=== PATIENT | female | born 1990 | race Caucasian/White ===

== ENCOUNTER 2018-05-20 20:31 | Inpatient (IN) ==
[2018-05-20] MEDS ORDERED: Ibuprofen 400 MG TABLET PO PRN (20:55)
[2018-05-20] MEDS ORDERED: *HR* LORazepam 2 MG/ML VIAL IM PRN (21:01)
[2018-05-20] MEDS ORDERED: *HR* LORazepam 1 MG TABLET PO PRN (21:01)
[2018-05-20] MEDS ORDERED: MOM Conc 10 ML UD.LIQ PO PRN (21:01)
[2018-05-20] MEDS ORDERED: Mag Hydrox/Al Hydrox/Simeth 30 ML UDC PO PRN (21:01)
[2018-05-20] MEDS: hydrOXYzine pamoate 25 MG CAPSULE PO PRN (21:43)
[2018-05-20] MEDS: traZODone 50 MG TABLET PO PRN (21:43)
[2018-05-20] MEDS: Topiramate 100 MG TABLET PO SCH (21:43)
[2018-05-20] MEDS: (Atomoxetine Hcl [Strattera] 60 MG) PO SCH (21:46)
[2018-05-21] MEDS: Nicotine 21 MG PATCH.TD24 TD SCH (10:14)
[2018-05-21] MEDS: Topiramate 100 MG TABLET PO SCH ×2 (10:14→21:30)
[2018-05-21] MEDS: (Atomoxetine Hcl [Strattera] 60 MG) PO SCH (10:16)
[2018-05-21] MEDS: (Brexpiprazole [Rexulti] 4 MG) PO SCH (10:16)
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
[2018-05-21] MEDS: hydrOXYzine pamoate 25 MG CAPSULE PO PRN ×2 (15:47→21:30)
[2018-05-21] MEDS: Perphenazine 2 MG TABLET PO SCH (21:29)
[2018-05-21] MEDS: traZODone 50 MG TABLET PO PRN (21:30)
[2018-05-22] MEDS ORDERED: Levothyroxine 25 MCG TABLET PO SCH (06:30)
[2018-05-22] MEDS: Topiramate 100 MG TABLET PO SCH (09:53)
[2018-05-22] MEDS: Perphenazine 2 MG TABLET PO SCH (09:53)
[2018-05-22] MEDS: Nicotine 21 MG PATCH.TD24 TD SCH (09:54)
[2018-05-22] MEDS: (Brexpiprazole [Rexulti] 4 MG) PO SCH (09:55)
[2018-05-22] MEDS: (Atomoxetine Hcl [Strattera] 60 MG) PO SCH (09:55)
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
[2018-05-22 10:06] VITALS: BP 120/90
== END 2018-05-22 11:35 | disposition home or self-care (01) | DRG 751 ==
LOC: 1ANU 20:31
PROVIDERS: ADMIT Psychiatry & Neurology Psychiatry; ATTEND Psychiatry & Neurology Psychiatry

== ENCOUNTER 2018-09-13 19:54 | Inpatient (IN) ==
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
[2018-09-13 21:24] LABS: Acetaminophen < 10 mcg/mL (10-20); BUN/Creatinine Ratio 17 (6-26); Blood Urea Nitrogen 13 mg/dL (6-20); Calcium 9.2 mg/dL (8.6-10.3); Carbon Dioxide 18 mEq/L (23-29); Chloride 108 mEq/L (98-107); Ethanol < 10 mg/dL (Less than 10); Glucose 88 mg/dL (70-105); Osmolality,Calculated 282 (280-300); Salicylate < 2.5 mg/dL (15.0-30.0); Sodium 136 mEq/L (136-145); eGFR For African Americans > 60 (> 60); eGFR For Non-African Americans > 60 (> 60)
[2018-09-13 21:26] LABS: Bilirubin,Urine Negative (Negative); Blood,Urine Negative (Negative); Clarity,Urine Cloudy (Clear); Color,Urine Yellow (Yellow); Glucose,Urine (UA) Normal (Normal); Ketones,Urine Trace mg/dL (Negative); Leukocyte Esterase,Urine Negative (Negative); Nitrite,Urine Negative (Negative); Protein,Urine Negative (Neg-Trace); Specific Gravity,Urine 1.006 (1.010-1.025); Urobilinogen,Urine Normal (Normal)
[2018-09-13 21:29] LABS: Bacteria,Urine None Seen per hpf (None-Few); Hyaline Casts,Urine None Seen per lpf (None-Few); Squamous Epithelial Cell,Urine Many per lpf (None-Few)
[2018-09-13 22:08] LABS: Basophils # 0.1 K/mcL (0.0-0.2); Basophils % 0.7 %; Eosinophils # 0.1 K/mcL (0.0-0.6); Eosinophils % 0.6 %; Hematocrit 38.4 % (35.3-44.9); Hemoglobin 12.6 g/dL (11.5-15.4); Immature Granulocytes % 0.2 % (0-4); Lymphocytes # 2.6 K/mcL (0.6-4.6); Lymphocytes % 30.4 %; Mean Corpuscular HGB Conc 32.8 g/dL (31.6-35.5); Mean Corpuscular Hemoglobin 30.1 pg (28.0-33.3); Mean Corpuscular Volume 91.6 fL (83.0-100.0); Mean Platelet Volume 11.5 fL (9.4-12.4); Monocytes # 0.8 K/mcL (0.0-1.3); Monocytes % 8.9 %; Neutrophils # 5.1 K/mcL (1.6-8.9); Platelet Count 236 K/mcL (140-400); Red Blood Count 4.19 M/mcL (3.82-4.97); Red Cell Distribution Width 13.9 % (11.5-14.5); Segmented Neutrophils % 59.2 %; White Blood Count 8.5 K/mcL (4.3-11.1)
[2018-09-13 22:08] LABS: Amphetamine Screen,Urine Positive ng/mL (Cutoff=1000); Barbiturate Screen,Urine Negative ng/mL (Cutoff=200); Benzodiazepines Screen,Urine Negative ng/mL (Cutoff=200); Cannabinoid Screen,Urine Negative ng/mL (Cutoff = 50); Cocaine Screen,Urine Negative ng/mL (Cutoff= 300); Opiate Screen,Urine Negative ng/mL (Cutoff=300); Phencyclidine Screen,Urine Negative ng/mL (Cutoff=25)
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
[2018-09-14] MEDS ORDERED: MOM Conc 10 ML UD.LIQ PO PRN (02:12)
[2018-09-14] MEDS ORDERED: Ibuprofen 400 MG TABLET PO PRN (02:12)
[2018-09-14] MEDS ORDERED: Mag Hydrox/Al Hydrox/Simeth 30 ML UDC PO PRN (02:12)
[2018-09-14] MEDS: Levothyroxine 25 MCG TABLET PO SCH (06:22)
[2018-09-14] MEDS: Nicotine 2 MG GUM BC PRN ×2 (06:23→15:01)
[2018-09-14] MEDS: Perphenazine 2 MG TABLET PO SCH ×2 (08:58→20:40)
[2018-09-14] MEDS: Topiramate 100 MG TABLET PO SCH ×2 (08:58→20:40)
[2018-09-14] MEDS: hydrOXYzine pamoate 25 MG CAPSULE PO SCH ×4 (08:58→20:41)
[2018-09-14] MEDS: (Atomoxetine Hcl [Strattera] 60 MG) PO SCH (09:04)
[2018-09-14] MEDS: (Brexpiprazole [Rexulti] 4 MG) PO SCH (09:04)
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
[2018-09-14] MEDS ORDERED: cloNIDine HCl 0.1 MG TABLET PO PRN (09:16)
[2018-09-14] MEDS ORDERED: Ondansetron ODT 4 MG TAB.RAPDIS SL PRN (09:22)
[2018-09-14] MEDS: *HR* LORazepam 2 MG/ML VIAL IM PRN (20:17)
[2018-09-14] MEDS: WATER FOR INJ IM PRN (20:21)
[2018-09-14] MEDS: ZIPRASIDONE IM PRN (20:21)
[2018-09-15] MEDS: Levothyroxine 25 MCG TABLET PO SCH ×2 (06:36→08:24)
[2018-09-15] MEDS: hydrOXYzine pamoate 25 MG CAPSULE PO SCH ×4 (08:23→21:07)
[2018-09-15] MEDS: Topiramate 100 MG TABLET PO SCH ×2 (08:23→21:07)
[2018-09-15] MEDS: Perphenazine 2 MG TABLET PO SCH ×2 (08:24→21:06)
[2018-09-15] MEDS: (Atomoxetine Hcl [Strattera] 60 MG) PO SCH (08:26)
[2018-09-15] MEDS: (Brexpiprazole [Rexulti] 4 MG) PO SCH (08:26)
--- NOTE | 2018-09-15 10:31 | Psychiatry Progress Note ---
Date of Encounter: 09/15/18 Time of Encounter: 10:26 Subjective Interval history: Looks better today. Became very agitated last night. Wanted out to use. Picked up a chair and swung it. Ended up receiving emergency IM medications. Also took scheduled meds and she is starting to clear up now. Much more cooperative. Still asking to leave but able to tolerate discussion on what needs to change when she leaves and what services need set up. States she will consider Vivatrol. Has been buying Suboxone off the street since being kicked out of the clinic. Needs more time off opiates before she can tolerate a Vivatrol shot but if she can find a way to stay clean this is definitely somet ender to consider. Mixing Suboxone and Meth. Aware AH are worsened by Meth use. 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 Meds seem to be helping. Likely needs a couple of days but definitely looking better. Review of Systems Constitutional: Denies: fever, chills, weakness, weight change Eyes: Denies: eye pain, vision change Ears, Nose, Throat: Denies: ear pain, throat pain, dental pain, hearing loss, congestion Cardiovascular: Denies: chest pain, palpitations, dyspnea on exertion Respiratory: Denies: cough, dyspnea, wheezes Gastrointestinal: Denies: abdominal pain, nausea, vomiting, diarrhea, constipation Musculoskeletal: Denies: joint swelling, joint pain Neurological: Denies: headache, weakness, numbness, memory loss Results - Vital Signs Vital Signs: Temp Pulse Resp BP Pulse Ox 98.2 F 69 18 105/73 99 09/15/18 09:00 09/15/18 09:00 09/15/18 09:00 09/15/18 09:00 09/15/18 09:00 Assessment and Plan (1) Substance-induced psychotic disorder Current visit: Yes Status: Acute Plan: Continue hospitalization, Close observation, Suicide Precautions per unit protocol, Encourage participation in unit milieu, Group Therapy, Monitor sleep, Monitor appetite Risks, benefits, side effects, alternatives discussed w/pt: Yes Patient agreeable to treatment: Yes (2) Major depression Current visit: Yes Status: Acute Risks, benefits, side effects, alternatives discussed w/pt: Yes Patient agreeable to treatment: Yes Qualifiers: Major depression recurrence: recurrent Active/Remission status: currently active Major depression episode severity: moderate Qualified Code(s): F33.1 - Major depressive disorder, recurrent, moderate Consult Discharge Plan - Plan Psychiatry Exam - Constitutional Vitals: Temp Pulse Resp BP Pulse Ox 98.2 F 69 18 105/73 99 09/15/18 09:00 09/15/18 09:00 09/15/18 09:00 09/15/18 09:00 09/15/18 09:00 General appearance: obese - Musculoskeletal Gait: normal Station: relaxed Strength & Tone: normal for patient - Psychiatric Patient Orientation: Yes Person, Yes Time, Yes Place Level of alertness: Alert Behavior: calm, cooperative Psychomotor activity: Normal Eye Contact: Maintains Eye Contact Mood Description: Irritable Affect description: congruent with mood Speech Volume: Normal Speech pattern: normal rate, normal rhythm, normal tone, fluent, spontaneous Language & Vocabulary: consistent with education Thought Process: [place] Thought Content: No Suicidal ideation, No Homicidal ideation, No Overt delusions Perceptual Disturbances: Yes Auditory hallucinations Attention Span Ability: Capable of Focused Attention Memory Description: Immediate Intact, Recent Impaired, Remote Intact Patient Reliability: Questionable Historian Fund of knowledge: Yes abstraction ability Intelligence Estimate: Average Judgment: Poor Insight: Minimal
[2018-09-15] MEDS: Nicotine 14 MG PATCH.TD24 TD SCH (11:54)
[2018-09-15] MEDS: Ziprasidone 20 MG CAPSULE PO PRN (13:37)
[2018-09-15] MEDS: traZODone 50 MG TABLET PO PRN (21:07)
[2018-09-15] MEDS: *HR* LORazepam 2 MG/ML VIAL IM PRN (22:23)
[2018-09-15] MEDS: WATER FOR INJ IM PRN (22:23)
[2018-09-15] MEDS: ZIPRASIDONE IM PRN (22:23)
[2018-09-16] MEDS: Levothyroxine 25 MCG TABLET PO SCH (06:23)
[2018-09-16] MEDS: Nicotine 14 MG PATCH.TD24 TD SCH (07:45)
[2018-09-16] MEDS: *HR* LORazepam 1 MG TABLET PO PRN ×2 (07:46→23:06)
[2018-09-16] MEDS: Topiramate 100 MG TABLET PO SCH ×2 (07:46→20:20)
[2018-09-16] MEDS: Perphenazine 2 MG TABLET PO SCH ×2 (07:46→20:19)
[2018-09-16] MEDS: Ziprasidone 20 MG CAPSULE PO PRN (07:47)
[2018-09-16] MEDS: hydrOXYzine pamoate 25 MG CAPSULE PO SCH ×4 (07:47→20:20)
[2018-09-16] MEDS: (Brexpiprazole [Rexulti] 4 MG) PO SCH (09:18)
[2018-09-16] MEDS: (Atomoxetine Hcl [Strattera] 60 MG) PO SCH (09:18)
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
[2018-09-16] MEDS: *HR* LORazepam 2 MG/ML VIAL IM PRN (12:37)
[2018-09-16] MEDS: ZIPRASIDONE IM PRN (12:38)
[2018-09-16] MEDS: WATER FOR INJ IM PRN (12:38)
[2018-09-16] MEDS: traZODone 50 MG TABLET PO PRN (20:20)
[2018-09-17] MEDS: traZODone 50 MG TABLET PO PRN (01:25)
[2018-09-17] MEDS: Levothyroxine 25 MCG TABLET PO SCH (06:38)
[2018-09-17] MEDS: Perphenazine 2 MG TABLET PO SCH (09:06)
[2018-09-17] MEDS: Topiramate 100 MG TABLET PO SCH (09:07)
[2018-09-17] MEDS: hydrOXYzine pamoate 25 MG CAPSULE PO SCH (09:07)
[2018-09-17] MEDS: Nicotine 14 MG PATCH.TD24 TD SCH (09:08)
[2018-09-17] MEDS: (Brexpiprazole [Rexulti] 4 MG) PO SCH (09:10)
[2018-09-17] MEDS: (Atomoxetine Hcl [Strattera] 60 MG) PO SCH (09:10)
[2018-09-17 09:23] VITALS: BP 106/71
--- NOTE | 2018-09-17 11:17 | Discharge Summary ---
Date of Encounter: 09/17/18 Time of Encounter: 10:00 Diagnosis - Discharge Diagnosis (1) Substance-induced psychotic disorder Status: Acute Medications - Discharge Medications Prescriptions: Buspirone HCl [Buspar] 7.5 mg PO TID #45 tablet hydrOXYzine pamoate [HydrOXYzine Pamoate] 50 mg PO QID #45 capsule Propranolol [Inderal] 20 mg PO BID #30 tablet Brexpiprazole [Rexulti] 4 mg PO DAILY #15 tablet Atomoxetine HCl [Strattera] 60 mg PO DAILY #15 capsule Levothyroxine [Synthroid] 25 mcg PO DAILY@0630 #30 tablet Topiramate [Topamax] 100 mg PO BID #30 tablet traZODone [TraZODone] 50 mg PO HS PRN #15 tablet PRN Reason: Insomnia Perphenazine [Trilafon] 4 mg PO BID #30 tablet Atomoxetine HCl [Strattera] 60 mg PO DAILY #15 capsule 09/17/18 [Rx] Brexpiprazole [Rexulti] 4 mg PO DAILY #15 tablet 09/17/18 [Rx] Buspirone HCl [Buspar] 7.5 mg PO TID #45 tablet 09/17/18 [Rx] Levothyroxine [Synthroid] 25 mcg PO DAILY@0630 #30 tablet 09/17/18 [Rx] Perphenazine [Trilafon] 4 mg PO BID #30 tablet 09/17/18 [Rx] Propranolol [Inderal] 20 mg PO BID #30 tablet 09/17/18 [Rx] Topiramate [Topamax] 100 mg PO BID #30 tablet 09/17/18 [Rx] hydrOXYzine pamoate [HydrOXYzine Pamoate] 50 mg PO QID #45 capsule 09/17/18 [Rx] traZODone [TraZODone] 50 mg PO HS PRN #15 tablet 09/17/18 [Rx] Allergy/AdvReac Type Severity Reaction Status Date / Time haloperidol [From Haldol] Allergy Hives Verified 09/13/18 20:35 lamotrigine [From Lamictal] Allergy Hives Verified 09/13/18 20:35 Results Procedures and tests throughout hospitalization: Completed Lab Orders Category Date Time Status Acetaminophen Stat Lab 09/13/18 20:45 Completed Basic Metabolic Panel Stat Lab 09/13/18 20:45 Completed Complete Blood Count [HEME] Stat Lab 09/13/18 21:34 Completed Ethanol Stat Lab 09/13/18 20:45 Completed Test Result, Urine [URIN] Stat Lab 09/13/18 21:06 Completed Salicylate Stat Lab 09/13/18 20:45 Completed Urinalysis Reflex Cult & Micro [URIN] Stat Lab 09/13/18 21:06 Completed Urine tox screen [Drug Screen, Urine] [UCHEM] Stat Lab 09/13/18 21:06 Com pleted Lab Results 09/13/18 09/13/18 09/13/18 Range/Units 20:45 21:06 21:06 WBC (4.3-11.1) K/mcL RBC (3.82-4.97) M/mcL Hgb (11.5-15.4) g/dL Hct (35.3-44.9) % MCV (83.0-100.0) fL MCH (28.0-33.3) pg MCHC (31.6-35.5) g/dL RDW (11.5-14.5) % Plt Count (140-400) K/mcL MPV (9.4-12.4) fL Immature Gran % (0-4) % Seg Neutrophils % % Lymphocytes % % Monocytes % % Eosinophils % % Basophils % % Neutrophils # (1.6-8.9) K/mcL Lymphocytes # (0.6-4.6) K/mcL Monocytes # (0.0-1.3) K/mcL Eosinophils # (0.0-0.6) K/mcL Basophils # (0.0-0.2) K/mcL Sodium 136 (136-145) mEq/L Potassium 4.0 (3.5-5.1) mEq/L Chloride 108 H (98-107) mEq/L Carbon Dioxide 18 L (23-29) mEq/L BUN 13 (6-20) mg/dL Creatinine 0.78 (0.60-1.20) mg/dL Est GFR ( Amer) > 60 (> 60) Est GFR (Non-Af Amer) > 60 (> 60) BUN/Creatinine Ratio 17 (6-26) Glucose 88 (70-105) mg/dL Calculated Osmolality 282 (280-300) Calcium 9.2 (8.6-10.3) mg/dL Urine Color Yellow (Yellow) Urine Clarity Cloudy A (Clear) Urine pH 6.0 (5.0-8.0) pH Units Ur Specific [place] 1.006 L (1.010-1.025) Urine Protein Negative (Neg-Trace) mg/dL Urine Glucose (UA) Normal (Normal) mg/dL Urine Ketones Trace H (Negative) mg/dL Urine Blood Negative (Negative) Urine Nitrite Negative (Negative) Urine Bilirubin Negative (Negative) Urine Urobilinogen Normal (Normal) mg/dL Ur Leukocyte Esterase Negative (Negative) Urine Microscopic WBC 3-5 H (0-3) per hpf Ur Squamous Epith Cells Many H (None-Few) per lpf Urine Bacteria None Seen (None-Few) per hpf Hyaline Casts None Seen (None-Few) per lpf Ur Culture Indicated? NO (NO) Urine Test Negative (Negative) Salicylates < 2.5 L (15.0-30.0) mg/dL Urine Opiates Screen (Mkvonn=554) ng/mL Acetaminophen < 10 L (10-20) mcg/mL Ur Barbiturates Screen (Ibdtqu=394) ng/mL Ur Phencyclidine Scrn (Cutoff=25) ng/mL Ur Amphetamines Screen (Kgfqbg=0342) ng/mL U Benzodiazepines Scrn (Fadsva=084) ng/mL Urine Cocaine Screen (Cutoff= 300) ng/mL U Marijuana (THC) Screen (Cutoff = 50) ng/mL Ur Drug Screen Interp Ethyl Alcohol < 10 (Less than 10) mg/dL 09/13/18 09/13/18 Range/Units 21:06 21:34 WBC 8.5 (4.3-11.1) K/mcL RBC 4.19 (3.82-4.97) M/mcL Hgb 12.6 (11.5-15.4) g/dL Hct 38.4 (35.3-44.9) % MCV 91.6 (83.0-100.0) fL MCH 30.1 (28.0-33.3) pg MCHC 32.8 (31.6-35.5) g/dL RDW 13.9 (11.5-14.5) % Plt Count 236 (140-400) K/mcL MPV 11.5 (9.4-12.4) fL Immature Gran % 0.2 (0-4) % Seg Neutrophils % 59.2 % Lymphocytes % 30.4 % Monocytes % 8.9 % Eosinophils % 0.6 % Basophils % 0.7 % Neutrophils # 5.1 (1.6-8.9) K/mcL Lymphocytes # 2.6 (0.6-4.6) K/mcL Monocytes # 0.8 (0.0-1.3) K/mcL Eosinophils # 0.1 (0.0-0.6) K/mcL Basophils # 0.1 (0.0-0.2) K/mcL Sodium (136-145) mEq/L Potassium (3.5-5.1) mEq/L Chloride (98-107) mEq/L Carbon Dioxide (23-29) mEq/L BUN (6-20) mg/dL Creatinine (0.60-1.20) mg/dL Est GFR ( Amer) (> 60) Est GFR (Non-Af Amer) (> 60) BUN/Creatinine Ratio (6-26) Glucose (70-105) mg/dL Calculated Osmolality (280-300) Calcium (8.6-10.3) mg/dL Urine Color (Yellow) Urine Clarity (Clear) Urine pH (5.0-8.0) pH Units Ur Specific [place] (1.010-1.025) Urine Protein (Neg-Trace) mg/dL Urine Glucose (UA) (Normal) mg/dL Urine Ketones (Negative) mg/dL Urine Blood (Negative) Urine Nitrite (Negative) Urine Bilirubin (Negative) Urine Urobilinogen (Normal) mg/dL Ur Leukocyte Esterase (Negative) Urine Microscopic WBC (0-3) per hpf Ur Squamous Epith Cells (None-Few) per lpf Urine Bacteria (None-Few) per hpf Hyaline Casts (None-Few) per lpf Ur Culture Indicated? (NO) Urine Test (Negative) Salicylates (15.0-30.0) mg/dL Urine Opiates Screen Negative (Lkwybi=804) ng/mL Acetaminophen (10-20) mcg/mL Ur Barbiturates Screen Negative (Fwpkca=088) ng/mL Ur Phencyclidine Scrn Negative (Cutoff=25) ng/mL Ur Amphetamines Screen Positive H (Bazzhw=5378) ng/mL U Benzodiazepines Scrn Negative (Rgdugs=039) ng/mL Urine Cocaine Screen Negative (Cutoff= 300) ng/mL U Marijuana (THC) Screen Negative (Cutoff = 50) ng/mL Ur Drug Screen Interp See Below Ethyl Alcohol (Less than 10) mg/dL Provider Date of admission: 09/14/18 01:48 Primary care physician: PCP NONE Discharging clinician: N[facility] Exam - Constitutional Vitals: Temp Pulse Resp BP Pulse Ox 97.3 F L 81 22 106/71 96 09/17/18 09:00 09/17/18 09:00 09/17/18 09:00 09/17/18 09:00 09/17/18 09:00 General appearance: age & developmentally appropriate, well-groomed, well- nourished - Musculoskeletal Gait: normal Station: relaxed Strength & Tone: normal for patient - Psychiatric Patient Orientation: Yes Person, Yes Time, Yes Place Level of alertness: Alert Behavior: calm, cooperative Psychomotor activity: Normal Eye Contact: Maintains Eye Contact Mood Description: Euthymic/stable Patient description of mood: Good Affect description: congruent with mood, full range Speech Volume: Normal Speech pattern: normal rate, normal rhythm, normal tone, fluent, spontaneous Language & Vocabulary: consistent with education Thought Process: Linear, Goal Oriented Thought Content: No Suicidal ideation, No Homicidal ideation, No Overt delusions Perceptual Disturbances: No Auditory hallucinations, No Visual hallucinations Attention Span Ability: Capable of Focused Attention Memory Description: Grossly Intact Patient Reliability: Reliable Historian Fund of knowledge: Yes abstraction ability, Yes aware of current events Intelligence Estimate: Average Judgment: Good Insight: Full Hospital Course Hospital course: Ms. Barrera is a 28 year old female who was admitted for psychosis and mood lability. She was restarted on her Rexalti as well as her psychiatric medications. Patient was educated of diagnosis and the risk-benefit side effects of this alternative treatment options and was monitored for responsiveness and side effects. Mood anxiety sleep and appetite interest improved as did future orientation. She initially had some episodes of agitation particularly when she was craving drugs in the evenings and would throw chairs demanding to be let out so she could use. Self-harm thoughts subsided, thinking cleared, psychosis resolved, and mood stabilized. Patient was able to attend both individual and group therapy sessions as well as meet with the psychiatrist daily and urged to discuss any medication or treatment issues or other concerns. The patient was educated primarily by verbal means about their diagnosis and manifestations in their life. The option for treatment including group and individual therapy programming was offered to the patient in addition to the use of medications with all their potential risks, benefits, and side effects as well as the risks of not taking medication and non-adhereance were discussed with the patient at length. The patient was given the opportunity to ask questions and was noted to participate in the treatment in the planning process. The patient felt ready and eager to be discharged from the inpatient psychiatric unit to continue on with treatment as an outpatient. The patient agreed that is they were safe for this disposition. The patient was considered to be able to participate in informed consent and decision making with respect to medical, legal, and financial issues of the time of discharge. At the time of discharge the patient adamantly denied any concerns for lethality including suicidal or homicidal thoughts ideations or plans and was future oriented toward ongoing mental health care, medical follow-up and sobriety. Time spent discussing smoking cessation with patient: 3 to 10 minutes Does patient wish to continue nicotine replacement upon disc: No - Time Spent with Patient Total time spent providing and/or coordinating discharge services: 25 Less than 30 minutes Specific discharge activities: Interval history reviewed. Available labs reviewed . Psychotherapy provided. Patient had an opportunity to ask questions and address concerns. Patient was in agreement with the treatment plan. The risks benefits and side effects of medications were discussed with the patient, including alternatives and treatment. The patient was educated on the abstaining from any alcohol or illicit substances, following up with all scheduled appointments, and taking all medications as prescribed. The patient was educated on 90 meetings in 90 days and to find a sponsor. Assessment and Plan - Patient/Caregiver Discharge Instructions Activity: resume usual activities as tolerated Diet: regular diet Additional Instructions: Continue current medications. Follow up with outpatient mental health. Encourage continued therapy in a group or individual setting. The patient was discharged to home. - Follow up Plan [facility] - 09/19/18 1:00 pm (You have an appointment scheduled with Jocelyne Dick on Wednesday, September 19, 2018 at 1:00 PM for Counseling and Case Management. Please contact the office at least 24 hours in advance if you are unable to keep your appointment(s). ) Overall status at discharge: Stable Disposition: Home, Self-Care Quality - Multiple Antipsychotics Patient discharged on 2 or more antipsychotic medications: Yes - Justification Documentation of: History 3 failed trials of monotherapy (haldol, geodon, seroquel) Procedures - Procedures Procedures: Medication Management, Crisis Stabilization, Supportive Therapy, Group Therapy, Psychoeducational Therapy
== END 2018-09-17 14:35 | disposition home or self-care (01) | DRG 776 ==
LOC: EMEROOARM 19:54 → SUATTDRO 09-14 01:48 → 1ANU 09-14 01:48
PROVIDERS: ADMIT Psychiatry & Neurology Psychiatry; ATTEND Psychiatry & Neurology Psychiatry

== ENCOUNTER 2019-11-11 17:20 | Inpatient (IN) ==
[2019-11-11 17:52] LABS: Bilirubin,Urine Negative (Negative); Blood,Urine Negative (Negative); Clarity,Urine Clear (Clear); Color,Urine Colorless (Yellow); Glucose,Urine (UA) Normal (Normal); Ketones,Urine Negative (Negative); Leukocyte Esterase,Urine Negative (Negative); Nitrite,Urine Negative (Negative); Protein,Urine Negative (Neg-Trace); Specific Gravity,Urine 1.009 (1.010-1.025); Urobilinogen,Urine Normal (Normal)
[2019-11-11 17:55] LABS: Amphetamine Screen,Urine Negative ng/mL (Cutoff=1000); Barbiturate Screen,Urine Negative ng/mL (Cutoff=200); Benzodiazepines Screen,Urine Negative ng/mL (Cutoff=200); Cannabinoid Screen,Urine Negative ng/mL (Cutoff = 50); Cocaine Screen,Urine Negative ng/mL (Cutoff= 300); Opiate Screen,Urine Negative ng/mL (Cutoff=300); Phencyclidine Screen,Urine Negative ng/mL (Cutoff=25)
[2019-11-11] MEDS ORDERED: *HR* LORazepam 2 MG/ML VIAL IM PRN (19:17)
[2019-11-11] MEDS ORDERED: hydrOXYzine pamoate 25 MG CAPSULE PO PRN (19:17)
[2019-11-11] MEDS ORDERED: MOM Conc 10 ML UD.LIQ PO PRN (19:17)
[2019-11-11] MEDS ORDERED: Mag Hydrox/Al Hydrox/Simeth 30 ML UDC PO PRN (19:17)
[2019-11-11] MEDS ORDERED: Acetaminophen 325 MG TABLET PO PRN (19:17)
[2019-11-11] MEDS ORDERED: *HR* LORazepam 1 MG TABLET PO PRN (19:17)
[2019-11-11] MEDS ORDERED: chlorproMAZINE 25 MG TABLET PO PRN (19:18)
[2019-11-11] MEDS ORDERED: ChlorproMAZINE 25 MG/ML AMPUL IM PRN (19:21)
[2019-11-12] MEDS: Nicotine 14 MG PATCH.TD24 TD SCH (11:10)
[2019-11-12] MEDS: Brexpiprazole [Rexulti] PO SCH ×2 (11:14→16:48)
[2019-11-12] MEDS: traZODone 50 MG TABLET PO PRN (20:21)
[2019-11-13] MEDS: Brexpiprazole [Rexulti] PO SCH (08:48)
[2019-11-13] MEDS: Nicotine 14 MG PATCH.TD24 TD SCH (08:50)
[2019-11-13] MEDS ORDERED: chlorproMAZINE 25 MG TABLET PO PRN (11:43)
[2019-11-13] MEDS: traZODone 50 MG TABLET PO PRN (20:01)
[2019-11-14] MEDS: Nicotine 14 MG PATCH.TD24 TD SCH (08:14)
[2019-11-14 09:17] VITALS: BP 96/72
[2019-11-18] MEDS ORDERED: Paliperidone Palmitate [Invega Sustenna] 234 MG IM SCH (09:00)
== END 2019-11-14 10:07 | disposition home or self-care (01) | DRG 750 ==
LOC: EMEROOARM 17:20 → 1ANU 19:14
PROVIDERS: ADMIT Psychiatry & Neurology Psychiatry; ATTEND Psychiatry & Neurology Psychiatry

== ENCOUNTER 2020-04-17 14:14 | Inpatient (IN) ==
[2020-04-17 15:07] LABS: Basophils # 0.1 K/mcL (0.0-0.2); Basophils % 0.6 %; Eosinophils # 0.3 K/mcL (0.0-0.6); Eosinophils % 2.7 %; Hematocrit 42.4 % (35.3-44.9); Hemoglobin 13.7 g/dL (11.5-15.4); Immature Granulocytes % 0.4 % (0-4); Lymphocytes # 2.9 K/mcL (0.6-4.6); Lymphocytes % 29.9 %; Mean Corpuscular HGB Conc 32.3 g/dL (31.6-35.5); Mean Corpuscular Hemoglobin 30.6 pg (28.0-33.3); Mean Corpuscular Volume 94.9 fL (83.0-100.0); Mean Platelet Volume 10.8 fL (9.4-12.4); Monocytes # 0.6 K/mcL (0.0-1.3); Monocytes % 5.7 %; Neutrophils # 5.8 K/mcL (1.6-8.9); Platelet Count 311 K/mcL (140-400); Red Blood Count 4.47 M/mcL (3.82-4.97); Red Cell Distribution Width 11.8 % (11.5-14.5); Segmented Neutrophils % 60.7 %; White Blood Count 9.6 K/mcL (4.3-11.1)
[2020-04-17 15:11] LABS: Bilirubin,Urine Negative (Negative); Blood,Urine Trace (Negative); Clarity,Urine Clear (Clear); Color,Urine Light-Yellow (Yellow); Glucose,Urine (UA) Normal (Normal); Ketones,Urine Negative (Negative); Leukocyte Esterase,Urine Moderate (Negative); Mucus,Urine Few per lpf (None-Few); Nitrite,Urine Negative (Negative); PH,Urine 5.5 pH Units (5.0-8.0); Protein,Urine Negative (Neg-Trace); Specific Gravity,Urine 1.019 (1.010-1.025); Squamous Epithelial Cell,Urine Few per hpf (None-Few); Urobilinogen,Urine Normal (Normal); WBC,Urine 0-3 per hpf (0-3)
[2020-04-17 15:18] LABS: Amphetamine Screen,Urine Negative ng/mL (Cutoff=1000); Barbiturate Screen,Urine Negative ng/mL (Cutoff=200); Benzodiazepines Screen,Urine Negative ng/mL (Cutoff=200); Cannabinoid Screen,Urine Negative ng/mL (Cutoff = 50); Cocaine Screen,Urine Negative ng/mL (Cutoff= 300); Opiate Screen,Urine Negative ng/mL (Cutoff=300); Phencyclidine Screen,Urine Negative ng/mL (Cutoff=25)
[2020-04-17 15:29] LABS: Acetaminophen < 10 mcg/mL (10-20); BUN/Creatinine Ratio 17 (6-26); Blood Urea Nitrogen 16 mg/dL (6-20); Calcium 9.1 mg/dL (8.6-10.3); Carbon Dioxide 22 mEq/L (23-29); Chloride 104 mEq/L (98-107); Chol/HDL Ratio 2.8 (0-4.9); Cholesterol 119 mg/dL (< 200); Ethanol < 10 mg/dL (Less than 10); Glucose 109 mg/dL (70-105); HDL Cholesterol 42 mg/dL (40-59); LDL Cholesterol,Calculated 62 mg/dL (< 100); Osmolality,Calculated 284 (280-300); Potassium 3.6 mEq/L (3.5-5.1); Salicylate < 2.5 mg/dL (15.0-30.0); Sodium 136 mEq/L (136-145); Triglycerides 74 mg/dL (< 150); eGFR For African Americans > 60 (> 60); eGFR For Non-African Americans > 60 (> 60)
[2020-04-18 07:50] LABS: Estimated Average Glucose 103 mg/dl; Hemoglobin A1C 5.2 %
[2020-04-18] MEDS ORDERED: Acetaminophen 325 MG TABLET PO PRN (13:06)
[2020-04-18] MEDS ORDERED: Mag Hydrox/Al Hydrox/Simeth 30 ML UDC PO PRN (13:06)
[2020-04-18] MEDS ORDERED: QUEtiapine Fumarate 25 MG TABLET PO PRN (13:06)
[2020-04-18] MEDS ORDERED: *HR* LORazepam 2 MG/ML VIAL IM PRN (13:06)
[2020-04-18] MEDS ORDERED: MOM Conc 10 ML UD.LIQ PO PRN (13:06)
[2020-04-18] MEDS ORDERED: *HR* LORazepam 1 MG TABLET PO PRN (13:06)
[2020-04-18] MEDS ORDERED: FluPHENAZine Decanoate 25 MG/ML MLS IM PRN (13:11)
[2020-04-18] MEDS ORDERED: ARIPIPRAZOLE 400 MG IM SCH (13:15)
[2020-04-18] MEDS: Gabapentin 100 MG CAPSULE PO SCH ×2 (15:07→20:32)
[2020-04-18] MEDS: ARIPiprazole 10 MG TABLET PO SCH (20:32)
[2020-04-19] MEDS ORDERED: hydrOXYzine pamoate 25 MG CAPSULE PO SCH (09:00)
[2020-04-19] MEDS: Gabapentin 100 MG CAPSULE PO SCH ×3 (09:13→20:05)
[2020-04-19] MEDS ORDERED: chlorproMAZINE 25 MG TABLET PO PRN (09:52)
[2020-04-19] MEDS: hydrOXYzine pamoate 25 MG CAPSULE PO SCH ×3 (13:59→20:04)
[2020-04-19] MEDS: ARIPiprazole 10 MG TABLET PO SCH (20:04)
[2020-04-20 08:30] VITALS: BP 110/69
[2020-04-20] MEDS: Gabapentin 100 MG CAPSULE PO SCH (08:58)
[2020-04-20] MEDS: hydrOXYzine pamoate 25 MG CAPSULE PO SCH ×2 (08:59→13:34)
== END 2020-04-20 13:30 | disposition home or self-care (01) | DRG 750 ==
LOC: EMEROOARM 14:14 → 1ANU 04-18 13:04
PROVIDERS: ADMIT Psychiatry & Neurology Psychiatry; ATTEND Psychiatry & Neurology Psychiatry